=== PATIENT | female | born 1945 | race Caucasian/White ===

== ENCOUNTER 2020-05-20 12:29 | Outpatient (CLI) | payer MEDICARE, MEDICAID ==
[2020-05-20 22:37] LABS: SARS-CoV-2 PCR by NAA Not Detected (NotDetected)
== END 2020-05-20 12:30 | disposition home or self-care (01) ==
LOC: LABBT 12:29
PROVIDERS: ATTEND Specialist
DX: Z01.812 Encounter for preprocedural laboratory examination (principal); N18.6 End stage renal disease; Z20.822 Contact with and (suspected) exposure to COVID-19
CPT/HCPCS: U0003; U0005; 87635

== ENCOUNTER 2020-05-25 10:04 | Day surgery (SDC) | payer MEDICARE, MEDICAID ==
[2020-05-24 15:35] VITALS: BMI 19.4
[~2020-05-25 10:04] MED LIST: Bupivacaine HCl 0.5%/Epinephrine 1:200,000/PF 30 ml Vial ONE; PROPOFOL 200 MG/20 ML VIAL ONE
[2020-05-25 10:50] LABS: #Basophils 0.1 thou/uL (0.0-0.2); #Eosinphils 0.1 thou/uL (0.0-0.7); #Lymphocytes 1.5 thou/uL (1.20-3.40); #Monocytes 0.7 thou/uL (0.11-0.59); #Neutrophils 5.1 thou/uL (1.40-6.50); %Eosinophils 1.8 % (0.0-10.0); %Lymphocytes 20.2 % (21.0-51.0); %Monocytes 8.9 % (0.0-10.0); %Neutrophils 68.2 % (42.0-75.0); Hemoglobin 10.8 g/dL (12.0-16.0); Mean Corpuscular HGB CONC 31.6 g/dL (32.0-36.0); Mean Corpuscular Hemoglobin 31.2 pg (27.0-31.0); Mean Corpuscular Volume 98.9 fL (78.0-98.0); Mean Platelet Volume 7.9 fL (7.4-10.4); Platelet Count 228 thou/uL (130-400); RBC Distribution Width 15.3 % (11.5-14.5); Red Blood Cell (RBC) Count 3.45 mill/uL (4.20-5.40); White Blood Cell (WBC) Count 7.5 thou/uL (4.8-10.8)
[2020-05-25] MEDS ORDERED: Fentanyl 100 MCG/2 ML VIAL ONE ×2 (11:18→13:32)
[2020-05-25] MEDS ORDERED: Midazolam HCl 2 mg/2 ml Vial ONE (11:18)
[2020-05-25 11:21] LABS: Anion Gap 14 mmol/L (10-20); BUN (Urea Nitrogen) 37 mg/dL (9.8-20.1); Calc. Creatinine Clearance 7 mL/min (70-130); Calcium 8.7 mg/dL (7.8-10.44); Carbon Dioxide 26 mmol/L (23-31); Chloride 102 mmol/L (98-107); Glucose 97 mg/dL (83-110); Sodium 137 mmol/L (136-145)
[2020-05-25] MEDS ORDERED: XYLOCAINE 2%-EPI 1:100,000 20 ML VIAL ONE (13:22)
[2020-05-25] MEDS ORDERED: Heparin 5,000 UNITS/ML VIAL ONE (13:22)
[2020-05-25] MEDS ORDERED: Protamine Sulfate 50 MG/5 ML VIAL ONE (13:22)
[2020-05-25] MEDS ORDERED: Bupivacaine PF 0.5% 30 ML VIAL ONE (13:22)
[2020-05-25] MEDS ORDERED: Propofol 500 MG/50 ML VIAL ONE ×2 (13:32)
[2020-05-25] MEDS ORDERED: Heparin 1,000 UNITS/ML VIAL ONE (15:11)
--- NOTE | 2020-05-26 07:32 | OP ---
DATE OF PROCEDURE: 05/25/2020 PREOPERATIVE DIAGNOSES: End-stage renal disease, exhausted dialysis access, right arm, stents and graft cannot reuse, previous Guerda fistula, left wrist, vein harvest, medial upper arm for previous dialysis access. POSTOPERATIVE DIAGNOSES: End-stage renal disease, exhausted dialysis access, right arm, stents and graft cannot reuse, previous Guerda fistula, left wrist, vein harvest, medial upper arm for previous dialysis access, unavailable prosthetic graft for the procedure which had to be aborted. PROCEDURE PERFORMED: Exploration of left axilla and left medial upper arm. 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 ANESTHESIA: Regional TIVA. DESCRIPTION OF PROCEDURE: The patient was taken to the operating room, where under regional anesthesia, left upper extremity prepared with ChloraPrep and draped in routine fashion. Incision was made in the left axilla and left upper arm above the antecubital fossa dissecting the axillary vein, brachial artery free. The more superficial artery was smaller, deeper artery was larger. I created a tunnel with [employer]-[place] tunneler. When I requested the graft, it was not available and out of stock despite procedure scheduled for graft. [facility] inventory checked, not available and graft not available. Wound closed, subcutaneous tissues with 3-0 Monocryl, skin with subdermal 4-0 Monocryl, and [place] glue applied. Job ID: [id number]
== END 2020-05-25 15:35 | disposition home or self-care (01) ==
LOC: SDC 10:04
PROVIDERS: ATTEND Specialist
PROC: 0XJ Anatomical Regions, Upper Extremities, Inspection (ICD-10-PCS; principal; 2020-05-25)
DX: T82.511A Breakdown (mechanical) of surgically created arteriovenous shunt, initial encounter (principal); I12.0 Hypertensive chronic kidney disease with stage 5 chronic kidney disease or end stage renal disease; N18.6 End stage renal disease; J44.9 Chronic obstructive pulmonary disease, unspecified; E78.5 Hyperlipidemia, unspecified; E55.9 Vitamin D deficiency, unspecified; M06.9 Rheumatoid arthritis, unspecified; M79.7 Fibromyalgia; F32.9 Major depressive disorder, single episode, unspecified; D63.8 Anemia in other chronic diseases classified elsewhere; Q61.3 Polycystic kidney, unspecified; Z79.899 Other long term (current) drug therapy; Z87.891 Personal history of nicotine dependence; Z88.5 Allergy status to narcotic agent; Z88.8 Allergy status to other drugs, medicaments and biological substances; Z99.2 Dependence on renal dialysis
CPT/HCPCS: 80048; 85025; J0690; J1644; J2250; J2704; J2720; J3010; S0020

== ENCOUNTER 2020-06-03 15:07 | Outpatient (CLI) | payer MEDICARE, MEDICAID ==
[2020-05-06 23:10] LABS: SARS-CoV-2 PCR by NAA Not Detected (NotDetected)
[2020-06-03 16:58] LABS: Anion Gap 16 mmol/L (10-20); Carbon Dioxide 31 mmol/L (23-31); Chloride 98 mmol/L (98-107); Potassium 4.4 mmol/L (3.5-5.1); Sodium 141 mmol/L (136-145)
[2020-06-04 04:33] LABS: SARS-CoV-2 PCR by NAA Not Detected (NotDetected)
== END 2020-06-03 15:08 | disposition home or self-care (01) ==
LOC: LABBT 15:07
PROVIDERS: ATTEND Specialist
DX: Z01.812 Encounter for preprocedural laboratory examination (principal); Z20.822 Contact with and (suspected) exposure to COVID-19
CPT/HCPCS: 80051; 93005; U0003 ×2; U0005 ×2; 87635; 93010

== ENCOUNTER 2020-06-08 09:59 | Day surgery (SDC) | payer MEDICARE, MEDICAID ==
[2020-06-07 12:46] VITALS: BMI 19.1
[2020-06-08] MEDS ORDERED: Bupivacaine PF 0.5% 30 ML VIAL ONE (10:12)
[2020-06-08] MEDS ORDERED: Heparin 5,000 UNITS/ML VIAL ONE (10:12)
[2020-06-08] MEDS ORDERED: Protamine Sulfate 50 MG/5 ML VIAL ONE (10:12)
[2020-06-08] MEDS ORDERED: Lidocaine 2% PF 5 ML VIAL ONE (10:12)
[2020-06-08] MEDS ORDERED: Lidocaine 1% w/Epinephrine 1:100K 20 ML VIAL ONE (10:12)
[2020-06-08] MEDS ORDERED: Labetalol HCl 100 MG/20 ML VIAL ONE (11:04)
[2020-06-08] MEDS ORDERED: Fentanyl 100 MCG/2 ML VIAL ONE ×2 (11:31→11:57)
[2020-06-08] MEDS ORDERED: Midazolam HCl 2 mg/2 ml Vial ONE (11:31)
[2020-06-08] MEDS ORDERED: PHENYLEPHRINE-NS 100 MCG/ML 10 ML SYRINGE ONE (12:52)
[2020-06-08] MEDS ORDERED: Ondansetron PF 4 MG/2 ML Vial ONE (12:52)
[2020-06-08] MEDS ORDERED: Bupivacaine HCl 0.5%/Epinephrine 1:200,000/PF 30 ml Vial ONE (12:52)
[2020-06-08] MEDS ORDERED: PROPOFOL 20 ML ONE (14:23)
[2020-06-08] MEDS ORDERED: Sodium Chloride 0.9% 30 ML ONE (14:43)
[2020-06-08] MEDS ORDERED: Heparin 1,000 UNITS/ML VIAL ONE (15:50)
== END 2020-06-08 16:10 | disposition home or self-care (01) ==
LOC: SDC 09:59
PROVIDERS: ATTEND Specialist
PROC: 03180JD Bypass Left Brachial Artery to Upper Arm Vein with Synthetic Substitute, Open Approach (ICD-10-PCS; principal; 2020-06-08)
DX: I12.0 Hypertensive chronic kidney disease with stage 5 chronic kidney disease or end stage renal disease (principal); N18.6 End stage renal disease; D63.1 Anemia in chronic kidney disease; T82.868A Thrombosis due to vascular prosthetic devices, implants and grafts, initial encounter; T82.49XA Other complication of vascular dialysis catheter, initial encounter; J44.9 Chronic obstructive pulmonary disease, unspecified; E78.5 Hyperlipidemia, unspecified; M06.9 Rheumatoid arthritis, unspecified; M79.7 Fibromyalgia; K21.9 Gastro-esophageal reflux disease without esophagitis; F32.9 Major depressive disorder, single episode, unspecified; Z87.891 Personal history of nicotine dependence; Z79.899 Other long term (current) drug therapy; Z88.5 Allergy status to narcotic agent; Z88.8 Allergy status to other drugs, medicaments and biological substances; Z91.041 Radiographic dye allergy status; Z99.2 Dependence on renal dialysis
CPT/HCPCS: J0690; J1644; J2001; J2250; J2405; J2704; J2720; J3010; L8670; S0020

== ENCOUNTER 2022-09-27 14:15 | Outpatient (CLI) | payer OTHER, MEDICAID | END 2022-09-27 14:16 | disposition home or self-care (01) | LOC: BICMAMMO 14:15 | PROVIDERS: ATTEND Family Medicine | DX: Z12.31 Encounter for screening mammogram for malignant neoplasm of breast (principal) | CPT/HCPCS: 77063; 77067 ==

== ENCOUNTER 2023-10-17 14:19 | Outpatient (CLI) | payer OTHER, MEDICAID | END 2023-10-17 14:20 | disposition home or self-care (01) | LOC: BICMAMMO 14:19 | PROVIDERS: ATTEND Family Medicine | DX: Z12.31 Encounter for screening mammogram for malignant neoplasm of breast (principal) | CPT/HCPCS: 77063; 77067 ==

== ENCOUNTER 2024-11-26 16:13 | Emergency (ER) | payer OTHER, MEDICAID ==
[2024-11-26 18:28] LABS: #Basophils 0.05 10x3/uL (0.0-0.2); #Eosinophils 0.20 10x3/uL (0.0-0.7); #Monocytes 0.69 10x3/uL (0.11-0.59); #Neutrophils 3.57 10x3/uL (1.40-6.50); %Basophils 0.9 % (0.0-1.0); %Eosinophils 3.5 % (0.0-10.0); %Lymphocytes 21.0 % (21.0-51.0); %Monocytes 12.1 % (0.0-10.0); %Neutrophils 62.3 % (42.0-75.0); Hematocrit 34.9 % (36.0-47.0); Hemoglobin 11.2 g/dL (12.0-16.0); Mean Corpuscular Hemoglobin 32.1 pg (27.0-31.0); Mean Corpuscular Volume 100.0 fL (78.0-98.0); Platelet Count 160 10x3/uL (130-400); Red Blood Cell (RBC) Count 3.49 mill/uL (4.20-5.40); White Blood Cell (WBC) Count 5.72 10x3/uL (4.8-10.8)
[2024-11-26 18:48] LABS: ALT (SGPT) 12 U/L (Less than 34); AST (SGOT) 24 U/L (11-34); Albumin 3.6 g/dL (3.1-4.5); Alkaline Phosphatase 125 U/L (40-110); Anion Gap 16 mmol/L (10-20); BUN (Urea Nitrogen) 22 mg/dL (9.8-20.1); Bilirubin, Total 0.5 mg/dL (0.3-1.2); Calc. Creatinine Clearance 0 mL/min (70-130); Calcium 10.0 mg/dL (7.8-10.44); Carbon Dioxide 29 mmol/L (23-31); Chloride 98 mmol/L (98-107); Globulin 3.6 g/dL (2.4-3.5); Glucose 86 mg/dL (83-110); Potassium 3.5 mmol/L (3.5-5.1); Sodium 139 mmol/L (136-145)
== END 2024-11-26 19:44 | disposition home or self-care (01) ==
LOC: ERS 16:13
DX: T82.838A Hemorrhage due to vascular prosthetic devices, implants and grafts, initial encounter (principal); I10 Essential (primary) hypertension; Z87.891 Personal history of nicotine dependence; Z99.2 Dependence on renal dialysis
CPT/HCPCS: 36415; 80053; 85025; 99284